=== PATIENT | female | born 1980 | race Caucasian/White ===

== ENCOUNTER 2016-03-06 16:06 | Emergency (ER) | payer MEDICAID ==
[~2016-03-06] VITALS: Ht 162.6 cm; Wt 70.3 kg
[~2016-03-06 16:06] MED LIST: BIRTH CONTROL
[2016-03-06 22:15] VITALS: BP 105/62
[2016-03-06 23:02] LABS: Urine Blood Negative /uL (Negative); Urine Glucose Normal (Normal); Urine Ketone Negative (Negative); Urine RBC <1 /hpf (0 - 4); Urine Squamous Epithelial Cell FEW /hpf (<5)
[2016-03-06 23:11] LABS: Urine Bilirubin Negative (Negative); Urine Color Orange (Yellow); Urine Nitrite POSITIVE (Negative)
[2016-03-07] MEDS ORDERED: KETOROLAC TROMETH 60MG/2ML VIAL IM ONE
[2016-03-07] MEDS ORDERED: cefTRIAXone SOD 1,000 MG VL IM ONE
== END 2016-03-07 00:16 | disposition home or self-care (01) ==
LOC: EDUNIT# 16:06 → ER 16:06
DX: N20.0 Calculus of kidney (principal); D25.9 Leiomyoma of uterus, unspecified; Z87.440 Personal history of urinary (tract) infections
CPT/HCPCS: 74176; 81001; 96372; 99285; J0696; J1885

== ENCOUNTER 2022-03-02 18:57 | Emergency (ER) | payer MEDICAID ==
[~2022-03-02] VITALS: Ht 162.6 cm; Wt 75.0 kg
[2022-03-02] MEDS ORDERED: MORPHINE SULFATE 4 MG/ML SYR/VIAL IV ONE (19:45)
[2022-03-02] MEDS ORDERED: ONDANSETRON HCL 4 MG/2 ML VIAL IV ONE (19:45)
[2022-03-02] MEDS ORDERED: LACTATED RINGER'S 1,000 ML IV ONE (19:45)
[2022-03-02] MEDS ORDERED: IOHEXOL 350 MG/ML 100ML IJ ONE (19:58)
[2022-03-02 21:39] LABS: Basophils # (auto) 0 10 ^3/uL (0-0.2); Basophils % (auto) 0.3 % (0.0-2.0); Eosinophils # (auto) 0 10 ^3/uL (0-0.8); Eosinophils % (auto) 0.9 % (0.0-7.0); Hematocrit 35.9 % (36.0-46.0); Hemoglobin 12.3 g/dL (12.2-16.2); Lymphocytes % (auto) 19.5 % (10.0-50.0); Mean Corpuscular Hemoglobin 31.7 pg (28.0-32.0); Mean Corpuscular Hgb Conc. 34.4 g/dL (32.0-36.0); Mean Corpuscular Volume 92.2 fL (80.0-100.0); Monocytes # (auto) 0.4 10 ^3/uL (0-1.3); Monocytes % (auto) 8.5 % (0.0-12.0); Neutrophils # (auto) 3.6 10 ^3/uL (1.6-8.6); Neutrophils % (auto) 70.8 % (37.0-80.0); Nucleated Red Blood Cells % 0.1 %; Red Blood Cells 3.89 10^6/uL (4.0-5.20); Red Cell Distribution Width 13.7 % (11.8-14.3); White Blood Cell 5.1 10^3/uL (4.4-10.8)
[2022-03-02 21:47] LABS: Albumin 3.4 g/dL (3.4-5.0); Calcium 8.7 mg/dL (8.5-10.1)
[2022-03-02 21:50] LABS: BUN/Creatinine Ratio 12.3; Bilirubin, Total 0.2 mg/dL (0.2-1.0); Total Protein 7.5 g/dL (6.4-8.2)
[2022-03-02] MEDS ORDERED: ACETAMINOPHEN 500 MG TAB PO ONE (22:45)
[2022-03-02 23:20] LABS: INR 1.11 (0.9-1.15); Partial Thromboplastin Time 36.2 sec (24.6-33.4)
[2022-03-03 04:36] LABS: Urine Bacteria FEW /hpf (None Seen); Urine Blood Negative /uL (Negative); Urine WBC <1 /hpf (0 - 5)
[2022-03-03] MEDS ORDERED: ALBU108A5 IN (05:13)
[2022-03-03] MEDS ORDERED: AZIT250T9 PO (05:15)
[2022-03-03 06:18] VITALS: BP 117/51
== END 2022-03-03 06:18 | disposition home or self-care (01) ==
LOC: EDBD 18:57 → ER 18:57
DX: J06.9 Acute upper respiratory infection, unspecified (principal); R06.02 Shortness of breath; J45.909 Unspecified asthma, uncomplicated; Z32.02 Encounter for pregnancy test, result negative; Z88.1 Allergy status to other antibiotic agents
CPT/HCPCS: 36415; 74177; 80053; 81001; 81025; 83605; 83690; 84484; 84702; 85025; 85610; 85730; 96361; 96374; 96375; 99285; J2270; J2405; Q9967